=== PATIENT | female | born 1995 | race American Indian/Alaskan Native ===

== ENCOUNTER 2018-06-13 03:47 | Emergency (ER) | payer SELFPAY ==
[2018-06-13 03:59] VITALS: BP 130/81
--- NOTE | 2018-06-13 05:04 | Emergency Department Report ---
Addendum entered and electronically signed by AGUSTO PEACOCK PA 06/13/18 06:00: Information from up-to-date on Sudafed and after first trimester. Oral decongestants Oral decongestants are best avoided altogether during the first trimester because of an uncertain risk of several rare defects [37]. Pseudoephedrine can be used in the second and third trimesters in women without hypertension. Pseudoephedrine Pseudoephedrine is administered at a dose of 60 mg, given at a maximum frequency of four times daily, or 120 mg of the long-acting preparat ion given twice daily. Oral decongestants should generally be avoided during the first trimester, but during the second and third trimesters, pseudoephedrine is the decongestant of choice in women without hypertension [9]. In the [place], increasing abuse of pseudoephedrine as a stimulant in athletics and in the illegal production of methamphetamines has led to limits of how much can be obtained [id number], and patients must provide identification (eg, a patient transportation driver's license) to purchase the drug. A possible association between pseudoephedrine and gastroschisis (baseline incidence of 1 in 10,000 births) was found in two case control studies [37,40]. gastroschisis has also been reported with maternal phenylpropanolamine use [41], suggesting a possible drug class effect. Another abnormality associated with first trimester pseudoephedrine use is limb reduction defects [37]. However, reassuring data on pseudoephedrine also exist. A [place] study prospectively examined the outcomes of 2474 women who had reported use of oral decongestants (mostly phenylpropanolamine or pseudoephedrine) in early and 1774 women who used these medications in later [42]. No teratogenic effects were detected in either group. In addition, the use of these medications in later (after the first visit) was associated with lower rates of premature , low weight, [id number] infants, and , prompting the authors to hypothesize that rhinitis of may be a sign of good placental function. Although these data are reassuring, they do not have adequate power to exclude an increased risk of congenital malformations due to maternal first trimester use of oral decongestants. Original Note: - General Chief Complaint: Upper Respiratory Infection Stated Complaint: CONGESTION,COUGH, Time Seen by Provider: 06/13/18 04:52 Source: patient Mode of arrival: Ambulatory Limitations: No Limitations - History of Present Illness Initial Comments: 22-year-old -[place]ian female that is 38 weeks comes in with nasal congestion headache she reports nausea and vomiting 4 days she's taken Robitussin did not work. Patient's main concern is that she has nasal congestion. Patient last took Tylenol 2 days ago which she reports did not help. Patient reports that she has spoke to her turbo generator oiler and they told her to come in. Patient denies any abdominal pain no vaginal discharge or vaginal bleeding. MD Complaint: cough, nasal congestion -: days(s) (4) Consistency: constant Improves With: nothing Worsens With: nothing Associated Symptoms: headache, sore throat, cough Treatments Prior to Arrival: Acetaminophen, "cold medicine" - Related Data Previous Rx's Medication Instructions Recorded Last Taken Type Oxymetazoline 0.05% [Afrin] 1 spray NS QHS PRN #1 bottle 06/13/18 Unknown Rx Pseudoephedrine [Sudafed] 30 mg PO Q6H PRN #24 tablet 06/13/18 Unknown Rx Allergies Allergy/AdvReac Type Severity Reaction Status Date / Time No Known Allergies Allergy Unverified 06/13/18 03:54 ED Review of Systems ROS: Stated complaint: CONGESTION,COUGH, Other details as noted in HPI ENT: throat pain, congestion Respiratory: cough ED Past Medical Hx - Past Medical History Previous Medical History?: No - Surgical History Past Surgical History?: No - Social History Smoking Status: Former Smoker Substance Use Type: None - Medications Home Medications: Home Medications Medication Instructions Recorded Confirmed Last Taken Type Oxymetazoline 0.05% [Afrin] 1 spray NS QHS PRN #1 bottle 06/13/18 Unknown Rx Pseudoephedrine [Sudafed] 30 mg PO Q6H PRN #24 tablet 06/13/18 Unknown Rx ED Physical Exam - General Limitations: No Limitations General appearance: alert, in no apparent distress - Head Head exam: Present: atraumatic, normocephalic - Eye Eye exam: Present: normal appearance - ENT ENT exam: Present: mucous membranes moist - Neck Neck exam: Present: normal inspection, tenderness. Absent: lymphadenopathy - Respiratory Respiratory exam: Present: normal lung sounds bilaterally, other (no coughing due on my examination). Absent: respiratory distress, wheezes - Cardiovascular Cardiovascular Exam: Present: regular rate, normal rhythm. Absent: systolic murmur, diastolic murmur, rubs, gallop - GI/Abdominal GI/Abdominal exam: Present: soft, normal bowel sounds - Extremities Exam Extremities exam: Present: normal inspection - Back Exam Back exam: Present: normal inspection - Neurological Exam Neurological exam: Present: alert, oriented X3 - Psychiatric Psychiatric exam: Present: normal affect, normal mood - Skin Skin exam: Present: warm, dry, intact, normal color. Absent: rash ED Course Vital Signs 06/13/18 03:54 Temperature 97.5 F L Pulse Rate 94 H Respiratory 16 Rate Blood Pressure 130/81 O2 Sat by Pulse 99 Oximetry ED Medical Decision Making - Medical Decision Making Patient has been evaluated by this provider in fast track. Basic labs were ordered and urinalysis. Discussed patient she can take [id number] Sudafed and Afrin for nasal congestion. I discussed the patient to increase her water intake while taking medications. Discussed patient follow up the turbo generator oiler symptoms persist or gets worse. Critical care attestation.: If time is entered above; I have spent that time in minutes in the direct care of this critically ill patient, excluding procedure time. ED Disposition Clinical Impression: Nasal congestion related to Disposition: DC-01 TO HOME OR SELFCARE Is pt being admited?: No Does the pt Need Aspirin: No Condition: Stable Instructions: Pseudoephedrine (By mouth), Oxymetazoline (Into the nose) Additional Instructions: Please use medication as prescribed. Please do not use nasal spray more than 3 days. This can cause rebound nasal congestion. Please follow-up with your SERVICE RIG OPERATOR provider if his symptoms persist or gets worse. Please increase her water intake while taking Sudafed as it can dry you out. Prescriptions: Oxymetazoline 0.05% [Afrin] 1 spray NS QHS PRN #1 bottle PRN Reason: Nasal Congestion Pseudoephedrine [Sudafed] 30 mg PO Q6H PRN #24 tablet PRN Reason: Nasal Congestion Referrals: Your, turbo generator oiler [Other] - 3-5 Days
[2018-06-13] MEDS ORDERED: TYLENOL PO ONE (05:09)
[2018-06-13 05:13] LABS: Bilirubin,Urine NEG (Negative); Blood,Urine NEG (Negative); Color,Urine Yellow (Yellow); Mucus,Urine FEW /HPF; Protein,Urine <15 mg/dL mg/dL (Negative); Urobilinogen,Urine < 2.0 mg/dL (<2.0)
[2018-06-13 05:14] LABS: Basophils % (Auto) 0.3 % (0.0-1.8); Eosinophils # (Auto) 0.2 K/mm3 (0.0-0.4); Eosinophils % (Auto) 1.4 % (0.0-4.3); Hematocrit 34.2 % (30.3-42.9); Hemoglobin 11.1 gm/dl (10.1-14.3); Lymphocytes # (Auto) 1.8 K/mm3 (1.2-5.4); Lymphocytes % (Auto) 15.4 % (13.4-35.0); Mean Corpuscular HGB Conc 33 % (30-34); Mean Corpuscular Volume 89 fl (79-97); Monocytes # (Auto) 0.9 K/mm3 (0.0-0.8); Monocytes % (Auto) 7.9 % (0.0-7.3); Platelet Count 233 K/mm3 (140-440); Red Blood Count 3.87 M/mm3 (3.65-5.03)
[2018-06-13 05:28] LABS: Alanine Aminotransferase 13 units/L (7-56); Albumin 3.8 g/dL (3.9-5); BUN/Creatinine Ratio 10; Blood Urea Nitrogen 7 mg/dL (7-17); Calcium 9.3 mg/dL (8.4-10.2); Hemolysis Index 3
== END 2018-06-13 05:45 | disposition home or self-care (01) ==
LOC: ED 03:47
DX: O26.893 Other specified pregnancy related conditions, third trimester (principal); R09.81 Nasal congestion; R51 Headache; O21.0 Mild hyperemesis gravidarum
CPT/HCPCS: 36415; 80053; 81001; 85025

== ENCOUNTER 2019-09-10 10:07 | Inpatient (IN) | payer OTHER, MEDICAID ==
[2019-09-10] MEDS ORDERED: TERBUTALINE 1 MG/1 ML INJ IVP PRN (10:18)
[2019-09-10] MEDS ORDERED: ONDANSETRON 4 MG/2 ML INJ IV PRN ×2 (10:18→12:39)
[2019-09-10] MEDS ORDERED: ePHEDrine SULFATE 50 MG/1 ML INJ IV PRN ×2 (10:18→11:34)
[2019-09-10] MEDS ORDERED: MINERAL OIL 30 ML ORAL LIQD PO PRN (10:18)
[2019-09-10] MEDS ORDERED: PROMETHAZINE 25 MG TAB PO PRN ×2 (10:18→12:39)
[2019-09-10] MEDS ORDERED: LIDOCAINE (2%) 20 MG/1 ML VIAL 20 ML MDV INFILTRATI ONE (10:18)
[2019-09-10] MEDS ORDERED: TERBUTALINE 1 MG/1 ML INJ SUB-Q PRN (10:18)
[2019-09-10] MEDS ORDERED: fentaNYL 100 MCG/2 ML INJ IV PRN (10:18)
[2019-09-10] MEDS ORDERED: OXYTOCIN DRIP 30,000 MILLIUNITS/500 ML BAG IV ONE (10:20)
--- NOTE | 2019-09-10 10:28 | History and Physical Report ---
History of Present Illness Date of examination: 09/10/19 (Active labor) Date of admission: 09/10/19 10:09 Chief complaint: My water has broken and I am having a lot of contractions. History of present illness: EDC Confirmation: 09/08/2019 Gestational Age: 15 4/7 weeks Past History : 3 Term Births: 1 Premature Births: 0 Living Children: 1 Para: 1 Mult. Births: 0 Prev : 0 Aborta: 1 Elect. Ab: 1 Spont. 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 # 2 Delivery date: 09/2018 Weeks Gestation: 7 Delivery type: EAB Risk Factors: Smoked Tobacco Use: Never smoker Smokeless Tobacco Use: Never Passive smoke exposure: no Drug use: no HIV high-risk behavior: low risk Alcohol use: no Exercise: yes Times per week: 5 Type of Exercise: walking Seatbelt use: 100 % Past Medical History: PPH - blood transfusion no hx abornal pap no STI hx Past Surgical History: Negative Past Surgical History Past Medical History Surgery (Non-area attendant): Negative Past Surgical History Abnormal PAP: negative Family Hx: Father, PGM and PGM - kidney disease 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 of genital herpes: no Partner hx. of genital herpes: no Rash, Viral, or Febrile illness since last LMP? no Varicella/Chicken Pox Status: Previous Disease Genetic History Congenital Heart Defect: Mom: no Dad: no Yakelin Disease: Mom: no Dad: no Thalassemia Mom: no Dad: no Neural Tube Defect Mom: no Dad: no Down's Syndrome Mom: no Dad: no Compa-Sachs Mom: no Dad: no Sickle Cell Disease/Trait Mom: no Dad: no Hemophilia Mom: no Dad: no Muscular Dystrophy Mom: no Dad: no Cystic Fibrosis Mom: no Dad: no Sandoval Chorea Mom: no Dad: no Mental Retardation Mom: no Dad: no Fragile X Mom: no Dad: no Other Genetic/Chromosomal Disorder Mom: no Dad: no Child w/other defect Mom: yes Dad: no Comments: muticystic right kidney Enviromental Exposures Xray Exposure: no Medication, drug, or alcohol use since LMP: no Chemical/Other Exposure: no Exposure to Cat Liter: no Hx of Parvovirus (Fifth Disease): no Occupational Exposure to Children: none Active Medications (reviewed today): None Current Allergies (reviewed today): No known allergies Past History Past Medical History: no pertinent history Past Surgical History: no surgical history Family/Genetic History: none Social history: no significant social history - Obstetrical History Expected Date of Delivery: 09/08/19 Actual Gestation: 40 Week(s) 2 Day(s) : 3 Para: 1 Hx # Term Pregnancies: 1 Number of Pregnancies: 0 Spontaneous Abortions: 1 Induced : 0 Number of Living Children: 1 Medications and Allergies Allergies Allergy/AdvReac Type Severity Reaction Status Date / Time No Known Allergies Allergy Unverified 06/13/18 03:54 Home Medications Medication Instructions Recorded Confirmed Last Taken Type Oxymetazoline 0.05% [Afrin] 1 spray NS QHS PRN #1 bottle 06/13/18 Unknown Rx Pseudoephedrine [Sudafed] 30 mg PO Q6H PRN #24 tablet 06/13/18 Unknown Rx Active Meds: Active Medications Ephedrine Sulfate (Ephedrine Sulfate) 10 mg IV Q2M PRN PRN Reason: Hypotension Fentanyl (Sublimaze) 100 mcg IV Q2H PRN PRN Reason: Labor Pain Oxytocin/Sodium Chloride (Pitocin/Ns 20 Unit/1000ml Drip) 20 units in 1,000 mls @ 125 mls/hr IV DIRECT NICANOR Lactated Ringer's (Lactated Ringers) 1,000 mls @ 125 mls/hr IV DIRECT NICANOR Oxytocin/Sodium Chloride (Pitocin/Ns 30 Unit/500ml) 30,000 milliunits in 500 mls @ 4 mls/hr IV DIRECT ONE; Protocol Stop: 09/15/19 15:19 Lidocaine (Xylocaine 2%) 20 ml INFILTRATI ONCE ONE Stop: 09/10/19 10:19 Mineral Oil (Mineral Oil) 30 ml PO QHS PRN PRN Reason: Constipation Ondansetron HCl (Zofran) 4 mg IV Q8H PRN PRN Reason: Nausea And Vomiting Promethazine HCl (Phenergan) 25 mg PO Q6H PRN PRN Reason: Nausea And Vomiting Terbutaline Sulfate (Brethine) 0.25 mg SUB-Q ONCE PRN PRN Reason: Hyperstimulation/Hypertonicity Terbutaline Sulfate (Brethine) 0.25 mg IVP ONCE PRN PRN Reason: Hyperstimulation/Hypertonicity Review of Systems All systems: negative - Vital Signs Vital signs: Vital Signs Pulse Pulse Ox 63 100 09/10/19 10:20 09/10/19 10:20 Temp Pulse Resp BP Pulse Ox 63 100 09/10/19 10:20 09/10/19 10:20 - Physical Exam Breasts: Positive: deferred Cardiovascular: Regular rate, Normal S1, Normal S2 Lungs: Positive: Normal air movement Abdomen: Positive: normal appearance, soft Genitourinary (Female): Positive: normal external genitalia, normal perenium Vulva: both: normal Vagina: Positive: normal moisture Cervix: Negative: lesion, discharge Uterus: Positive: normal size, normal contour Anus/Rectum: Positive: normal perianal skin Extremities: Positive: normal Deep Tendon Reflex Grade: Normal +2 - Obstetrical FHR: category 1 Uterine Contraction Monitor Mode: External Cervical Dilatation: 7 (Per elevator operator service) Cervical Effacement Percentage: 100 station: 0 Uterine Contraction Pattern: Regular Uterine Tone Measurement Phase: Resting Uterine Contraction Intensity: Moderate Results All other labs normal. GBS NEGATIVE HBsAg Screen Negative Negative *1 RPR Non Reactive Non Reactive *2 Rubella Antibodies, IgG 4.35 index Immune >0.99 *3 Non-immune <0.90 Equivocal 0.90 - 0.99 Immune >0.99 ABO Grouping A *4 Rh Factor Positive *5 Please note: Prior records for this patient's ABO / Rh type are not available for additional verification. Antibody Screen Negative Negative *6 WBC [H] 15.0 x10E3/uL 3.4-10.8 *7 RBC [L] 3.39 x10E6/uL 3.77-5.28 *8 Hemoglobin [L] 8.8 g/dL 11.1-15.9 *9 Hematocrit [L] 29.0 % 34.0-46.6 *10 MCV 86 fL 79-97 *11 MCH [L] 26.0 pg 26.6-33.0 *12 MCHC [L] 30.3 g/dL 31.5-35.7 *13 RDW [H] 18.3 % 12.3-15.4 *14 Effective June 16, 2019, the RDW pediatric reference interval will be removed and the adult reference interval will be changing to: Female 11.7 - 15.4 Male 11.6 - 15.4 Platelets 385 x10E3/uL 150-450 *15 Neutrophils 78 % Not Estab. *16 Lymphs 14 % Not Estab. *17 Monocytes 7 % Not Estab. *18 Eos 1 % Not Estab. *19 Basos 0 % Not Estab. *20 ! Immature Cells <No Reported Value> *21 Neutrophils (Absolute) [H] 11.7 x10E3/uL 1.4-7.0 *22 Lymphs (Absolute) 2.0 x10E3/uL 0.7-3.1 *23 Monocytes(Absolute) [H] 1.1 x10E3/uL 0.1-0.9 *24 Eos (Absolute) 0.1 x10E3/uL 0.0-0.4 *25 Baso (Absolute) 0.0 x10E3/uL 0.0-0.2 *26 ! Immature Granulocytes 0 % Not Estab. *27 ! Immature Grans (Abs) 0.0 x10E3/uL 0.0-0.1 *28 ! NRBC <No Reported Value> *29 Hematology Comments: <No Reported Value> *30 Tests: (2) HB Solu + Rflx [facility] (912109) Hemoglobin (Hgb) Solubility Negative Negative *31 Tests: (3) Panel 455442 (464010) HIV Screen 4th Generation wRfx Non Reactive Non Reactive *32 Tests: (4) Gest. Diabetes 1-Hr Screen (485190) ! Gestational Diabetes Screen 94 mg/dL 65-139 *33 According to ADA, a glucose threshold of >139 mg/dL after 50-gram load identifies approximately 80% of women with gestational diabetes mellitus, while the sensitivity is further increased to approximately 90% by a threshold of >129 mg/dL. Tests: (5) HCV Ab w/Rflx to Verification ([id number]) ! HCV Ab <0.1 s/co ratio 0.0-0.9 *34 Tests: (6) Comment: (560807) ! Comment: SPRCS *35 Non reactive HCV antibody screen is consistent with no HCV infection, unless recent infection is suspected or other evidence exists to indicate HCV infection. Tests: (7) Urine Culture, Routine ([id number]) Urine Culture, Routine [A] Final report *36 Tests: (8) Result ([id number]) ! Result 1 [A] ECV *37 Escherichia coli, identified by an automated biochemical system. Greater than 100,000 colony forming units per mL Cefazolin <=4 ug/mL Cefazolin with an DARIUS <=16 predicts susceptibility to the oral agents cefaclor, cefdinir, cefpodoxime, cefprozil, cefuroxime, cephalexin, and loracarbef when used for therapy of uncomplicated urinary tract infections due to E. coli, Klebsiella pneumoniae, and Proteus mirabilis. ! Antimicrobial Susceptibility MIHEAD *38 S = Susceptible; I = Intermediate; R = Resistant P = Positive; N = Negative MICS are expressed in micrograms per mL Antibiotic RSLT#1 RSLT#2 RSLT#3 RSLT#4 Amoxicillin/Clavulanic Acid S Ampicillin R Cefepime S Ceftriaxone S Cefuroxime S Ciprofloxacin S Ertapenem S Gentamicin R Imipenem S Levofloxacin S Meropenem S Nitrofurantoin S Piperacillin/Tazobactam S Tetracycline S Tobramycin I Trimethoprim/Sulfa S Assessment and Plan A: 23 y.o. @ 40.2 wks in active labor. Cervical exam upon entry into triage 100/0. P: Admit to L&D. Anticipate .
[2019-09-10 10:45] LABS: Hematocrit 30.3 % (30.3-42.9); Hemoglobin 9.5 gm/dl (10.1-14.3); Mean Corpuscular HGB Conc 31 % (30-34); Mean Corpuscular Volume 74 fl (79-97); Platelet Count 345 K/mm3 (140-440); Red Cell Distribution Width 19.7 % (13.2-15.2)
--- NOTE | 2019-09-10 10:49 | Event Note ---
Date: 09/10/19 (Pt feeling more pressure.) Called by RN because patient stated that she was feeling more pressure. Cervical exam 7.5/100/+1. Pt requesting epidural. IV fluid bolus initiated for epidural placement.
[2019-09-10] MEDS ORDERED: LACTATED RINGERS 1,000 ML IV SCH (11:00)
[2019-09-10] MEDS ORDERED: miSOPROStol 200 MCG TAB ONE (11:23)
[2019-09-10] MEDS ORDERED: NALOXONE 2 MG/2 ML INJ IV PRN (11:34)
--- NOTE | 2019-09-10 11:34 | Anesthesia Consultation ---
Anesthesia Consult and Med Hx Date of service: 09/10/19 - Airway Anesthetic Teeth Evaluation: Good ROM Head & Neck: Adequate Mental/Hyoid Distance: Adequate Mallampati Class: Class II Intubation Access Assessment: Probably Good - Pre-Operative Health Status ASA Pre-Surgery Classification: ASA2 Proposed Anesthetic Plan: Epidural, Spinal - Pulmonary Hx Asthma: No COPD: No Hx Pneumonia: No - Cardiovascular System Hx Hypertension: No - Central Nervous System Hx Seizures: No Hx Psychiatric Problems: No - Endocrine Hx Renal Disease: No Hx End Stage Renal Disease: No Hx Hypothyroidism: No Hx Hyperthyroidism: No - Hematic Hx Anemia: No Hx Sickle Cell Disease: No - Other Systems Hx Alcohol Use: No
[2019-09-10] MEDS ORDERED: fentaNYL-BUPIV 2 MCG/ML-0.125% 200 MCG/100 ML BAG EPIDURAL SCH (12:00)
[2019-09-10] MEDS: OXYTOCIN 20 UNIT/1000ML DRIP 20 UNITS/1,000 ML BAG IV SCH ×3 (12:15→14:35)
[2019-09-10] MEDS ORDERED: diphenhydrAMINE 25 MG CAP PO PRN (12:39)
[2019-09-10] MEDS ORDERED: WITCH HAZEL/ GLYCERIN PAD TP PRN (12:39)
[2019-09-10] MEDS ORDERED: BENZOCAINE/MENTHOL 20/0.5% TOP SPRAY 56 GM TP PRN (12:39)
[2019-09-10] MEDS ORDERED: ACETAMINOPHEN 325 MG TAB PO PRN (12:39)
[2019-09-10] MEDS ORDERED: LANOLIN/ZINC/DIMETHICONE (LANSINOH) 7 GM TP PRN (12:39)
[2019-09-10] MEDS ORDERED: MAGNESIUM HYDROXIDE (MOM) ORAL LIQD UDC PO PRN (12:39)
--- NOTE | 2019-09-10 12:50 | Procedure Note ---
OB Delivery Note - Delivery Date of Delivery: 09/10/19 [place]: YASHIRA BONDS Estimated blood loss: 200cc - Vaginal Delivery presentation: vertex Delivery position: OA Intrapartum events: none Delivery induction: none Delivery monitor: external FHT, external uterine Route of delivery: Delivery placenta: spontaneous Delivery cord: 3 umbilical vessels Episiotomy: none Delivery laceration: none Anesthesia: epidural Delivery comments: of female over intact perineum. Infant to mothers chest for skin to skin. Cord clamped and cut. Spontaneous delivery of placenta, intact, 3 vessels noted. Fundus firm, minimal bleeding noted. Perineum and vagina inspected, no lacerations noted. Apgars 8,9. Weight 6-13. EBL 200ml. Infant and mother left in the care of RN in stable condition. Instruments and sponges counted X 2 with RN and correct.
[2019-09-10] MEDS ORDERED: OXYTOCIN 20 UNIT/1000ML DRIP 20 UNITS/1,000 ML BAG IV SCH (13:00)
[2019-09-10] MEDS ORDERED: IBUPROFEN 600 MG TAB PO SCH (13:00)
[2019-09-10] MEDS ORDERED: ACETAMINOPHEN 500 MG TAB PO PRN (13:07)
[2019-09-10] MEDS: IBUPROFEN 800 MG TAB PO SCH ×2 (15:00→21:42)
[2019-09-10] MEDS ORDERED: IBUPROFEN 800 MG TAB ONE (15:00)
[2019-09-10] MEDS ORDERED: AMMONIA INHALANT IH ONE (16:20)
--- NOTE | 2019-09-10 17:52 | Progress Note ---
Subjective Date of service: 09/10/19 Interval history: 1st day after Patient is active, ambulates well. No pain. Site is intact. No residual neurological deficit. No anesthesia complications Objective - Constitutional Vitals: Vital Signs - 12hr 09/10/19 09/10/19 09/10/19 10:20 10:25 10:47 Temperature 97.4 F L Pulse Rate 63 78 66 Respiratory 20 Rate Blood Pressure O2 Sat by Pulse 100 100 84 Oximetry 09/10/19 09/10/19 09/10/19 10:52 10:57 11:02 Temperature Pulse Rate 68 61 66 Respiratory Rate Blood Pressure O2 Sat by Pulse 98 98 97 Oximetry 09/10/19 09/10/19 09/10/19 11:07 11:12 11:17 Temperature Pulse Rate 77 92 H 60 Respiratory Rate Blood Pressure O2 Sat by Pulse 98 99 99 Oximetry 09/10/19 09/10/19 09/10/19 11:19 11:22 11:27 Temperature Pulse Rate 62 61 62 Respiratory Rate Blood Pressure O2 Sat by Pulse 75 L 99 99 Oximetry 09/10/19 09/10/19 09/10/19 12:21 12:24 12:36 Temperature Pulse Rate 73 64 69 Respiratory Rate Blood Pressure 112/57 109/60 108/59 O2 Sat by Pulse Oximetry 09/10/19 09/10/19 09/10/19 12:51 13:06 15:00 Temperature Pulse Rate 63 72 Respiratory 20 Rate Blood Pressure 103/56 103/62 O2 Sat by Pulse Oximetry - Labs CBC & Chem 7: 09/10/19 10:25 Labs: Abnormal lab results 09/10/19 Range/Units 10:25 WBC 11.3 H (4.5-11.0) K/mm3 Hgb 9.5 L (10.1-14.3) gm/dl MCV 74 L (79-97) fl MCH 23 L (28-32) pg RDW 19.7 H (13.2-15.2) %
--- NOTE | 2019-09-10 18:06 | Progress Note ---
Labor Epidural - Labor Epidural Start Time: 11:37 Stop Time: 11:52 Performed by:: JULIEN DALTON Procedure: Patient requesting epidural for labor pain. Patient interviewed, IDed, consent signed. In the sterile conditions under local anesthesia 18G needle is placed in L3-L4 epidural space using water resistance technique. Spinal G27 needle is directed through the spinal membrane. Injected .5cc .75% Marcaine intrathecally. Epidural catheter passed to 16cm elena. Negative aspiration test and test dose. Tolerated well.
[2019-09-10] MEDS: DOCUSATE SODIUM 100 MG CAP PO SCH (21:42)
[2019-09-11 00:48] LABS: Hematocrit 22.8 % (30.3-42.9); Hemoglobin 7.1 gm/dl (10.1-14.3)
[2019-09-11] MEDS: IBUPROFEN 800 MG TAB PO SCH ×2 (03:27→09:41)
[2019-09-11] MEDS ORDERED: TETANUS,DIPH,PERTUSS(ACELL) VACCINE 0.5 ML SYRINGE IM ONE (06:00)
--- NOTE | 2019-09-11 07:41 | Discharge Summary ---
Providers - Providers Date of Admission: 09/10/19 10:09 Date of discharge: 09/11/19 (Pt agrees with D/C home today) Attending physician: TESFAYE AVALOS Primary care physician: SOCIAL SERVICE WORKER Hospitalization Reason for admission: Active labor at 40 weeks gestation Condition: Good Pertinent studies: VSSAF. One HR outlier at 92. Adequate UO. Post-delivery H/H 12/30. Drop d/t blood loss during delivery and previous anemia in . Pt denies blurry vision, GAITAN, chest pain, SOB, dizziness, lightheadedness, or palpitations. Procedures: Uncomplicated at 40 weeks. Hospital course: uncomplicated at 40 weeks and uncomplicated PP course. Disposition: - TO HOME OR SELFCARE - Discharge Diagnoses (1) Spontaneous vaginal delivery Status: Acute Comment: Pt resting in bed quietly with infant at bedside. Rates pain 0/10. VSSAF. Ambulating and voiding without difficulty. Fundus firm at umbilicus. Scant vaginal bleeding. successfully. Desires no PP contraception at this time. Agrees with d/c home today. (2) Anemia Status: Acute Comment: Pt reports PO iron supplementation causes intense nausea. Advised pt to continue to take PNV with added iron. Core Measure Documentation - Palliative Care Palliative Care/ Comfort Measures: Not Applicable - Core Measures Any of the following diagnoses?: none Exam - Constitutional Vitals: Temp Pulse Resp BP Pulse Ox 98.0 F 68 18 106/59 100 09/11/19 02:55 09/11/19 02:55 09/11/19 02:55 09/11/19 02:55 09/11/19 02:55 General appearance: Present: no acute distress, well-nourished - EENT Eyes: Present: PERRL ENT: hearing intact, clear oral mucosa - Neck Neck: Present: supple, normal ROM - Respiratory Respiratory effort: normal Respiratory: bilateral: CTA - Cardiovascular Heart Sounds: Present: S1 & S2. Absent: rub, click - Extremities Extremities: pulses symmetrical, No edema Peripheral Pulses: within normal limits - Abdominal General gastrointestinal: Present: soft, non-tender, non-distended, normal bowel sounds Female genitourinary: Present: normal - Integumentary Integumentary: Present: clear, warm, dry - Musculoskeletal Musculoskeletal: gait normal, strength equal bilaterally - Psychiatric Psychiatric: appropriate mood/affect, intact judgment & insight - Neurologic Neurologic: CNII-XII intact, moves all extremities Plan Activity: no restrictions Weight Bearing Status: Full Weight Bearing Diet: regular Follow up with: PRIMARY CARE, [Primary Care Provider] - 7 Days (Congratulations! Please con tact our office at [phone] to schedule your 4-week visit. Call us with any questions or concerns. ) Prescriptions: Ibuprofen [Motrin] 800 mg PO Q8HR PRN #30 tablet PRN Reason: Pain, Moderate (4-6)
[2019-09-11 08:53] VITALS: BP 110/51
[2019-09-11] MEDS: DOCUSATE SODIUM 100 MG CAP PO SCH (09:42)
[2019-09-11] MEDS ORDERED: PRENATAL VIT27-FE FUMARATE-FOLIC ACID VIT TAB PO SCH (10:00)
== END 2019-09-11 11:20 | disposition home or self-care (01) | DRG 807 ==
LOC: TRG 10:07 → LD 10:09 → OB 14:27
PROVIDERS: ADMIT Obstetrics & Gynecology; ATTEND Obstetrics & Gynecology
PROC: 10E0XZZ Delivery of Products of Conception, External Approach (ICD-10-PCS; principal; 2019-09-10)
PROC: 3E0R3BZ Introduction of Anesthetic Agent into Spinal Canal, Percutaneous Approach (ICD-10-PCS; 2019-09-10)
PROC: 00HU33Z Insertion of Infusion Device into Spinal Canal, Percutaneous Approach (ICD-10-PCS; 2019-09-10)
PROC: 3E0234Z Introduction of Serum, Toxoid and Vaccine into Muscle, Percutaneous Approach (ICD-10-PCS; 2019-09-11)
DX: O99.02 Anemia complicating childbirth (principal); Z37.0 Single live birth; D64.9 Anemia, unspecified; Z3A.40 40 weeks gestation of pregnancy
CPT/HCPCS: 36415; 85014; 85018; 85027; 86592; 86850; 86900; 86901; G0378; J2590; J3010; J7120